=== PATIENT | female | born 1995 | race Caucasian/White ===

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

== ENCOUNTER 2017-09-08 11:24 | Outpatient (CLI) | payer OTHER ==
[2017-09-09 08:06] LABS: T4 (THYROXINE) 9.9 ug/dL (4.5-12.0)
== END 2017-09-08 19:54 | disposition home or self-care (01) ==
LOC: SLB 11:24
PROVIDERS: ATTEND Family Medicine
DX: K29.70 Gastritis, unspecified, without bleeding (principal); R91.8 Other nonspecific abnormal finding of lung field
CPT/HCPCS: 36415; 84436; 84443-TC; 84480

== ENCOUNTER 2018-01-17 10:39 | Outpatient (CLI) | payer OTHER ==
[2018-01-17 11:35] LABS: BASOPHILS # (AUTO) 0.1 K/uL (0.0-0.2); BASOPHILS % (AUTO) 1.2 % (0.0-2.0); EOSINOPHILS # (AUTO) 0.1 K/uL (0.0-0.4); EOSINOPHILS % (AUTO) 1.6 % (0.0-4.0); HEMATOCRIT 40.3 % (36-48); HEMOGLOBIN 13.6 g/dL (12.0-16.0); LYMPHOCYTES # (AUTO) 2.8 K/uL (1.0-5.5); LYMPHOCYTES % (AUTO) 42.2 % (20.5-51.5); MEAN CORPUSCULAR HEMOGLOBIN 29 pg (27-31); MEAN CORPUSCULAR HGB CONC 34 % (32-36); MEAN CORPUSCULAR VOLUME 85 fL (79.0-98.0); MONOCYTES # (AUTO) 0.5 K/uL (0.0-1.0); MONOCYTES % (AUTO) 8.1 % (1.7-9.3); NEUTROPHILS % (AUTO) 46.9 % (40.0-70.0); RED BLOOD CELL COUNT(AUTO) 4.72 MIL/uL (4.2-6.2); WHITE BLOOD COUNT (AUTO) 6.5 K/uL (4.5-11.0)
[2018-01-17 12:31] LABS: PLATELET COUNT (AUTO) 169 K/uL (130-430)
[2018-01-18 07:06] LABS: FOLATE (FOLIC ACID) >20.0 ng/mL (>3.0)
== END 2018-01-17 19:37 | disposition home or self-care (01) ==
LOC: SLB 10:39
PROVIDERS: ATTEND Family Medicine
DX: K29.70 Gastritis, unspecified, without bleeding (principal); F54 Psychological and behavioral factors associated with disorders or diseases classified elsewhere; R53.83 Other fatigue
CPT/HCPCS: 36415; 82306; 82607; 82746; 85025